=== PATIENT | female | born 1970 | race Caucasian/White ===

== ENCOUNTER 2016-05-24 20:40 | Emergency (ER) | payer OTHER | END 2016-05-25 00:58 | disposition home or self-care (01) | LOC: ER1 20:40 | DX: R60.0 Localized edema (principal) | CPT/HCPCS: 99283 ==

== ENCOUNTER 2020-05-26 22:37 | Emergency (ER) | payer OTHER ==
[2020-05-26 23:55] LABS: HEMOGLOBIN 15.3 gm/dl (12.3-15.3); RED BLOOD COUNT 4.76 M/UL (4.00-5.10); WHITE BLOOD COUNT 6.7 K/UL (4.5-11.0)
[2020-05-27 00:55] LABS: BUN/CREATININE RATIO 41 (0-10)
[2020-05-27] MEDS ORDERED: PROTONIX40 MG PO (04:09)
[2020-05-27] MEDS ORDERED: ZOFRAN ODT 4 MG4 MG PO (04:09)
[2020-05-27] MEDS ORDERED: BENTYL 10MG CAP10 MG PO (04:09)
== END 2020-05-27 04:06 | disposition home or self-care (01) ==
LOC: ER1 22:37
PROVIDERS: Urology
DX: R10.9 Unspecified abdominal pain (principal); E11.65 Type 2 diabetes mellitus with hyperglycemia
CPT/HCPCS: 80053; 81001; 82962; 83605; 83690; 85025; 87086; 96365; 96375; 99284; J1885; J2270; J2405; Q9967